=== PATIENT | female | born 1965 | race Caucasian/White ===

== ENCOUNTER 2018-01-21 00:29 | Emergency (ER) | payer OTHER ==
[~2018-01-21] VITALS: Ht 175.3 cm; Wt 115.0 kg
[~2018-01-21 00:29] MED LIST: ALBU8HFA PO; BUDE10.2 INH; CODE118S2 PO; IPRA3AMP IH; MONT10TA21 PO; MULT-1085 PO; SACC250C PO
[2018-01-21] MEDS ORDERED: AMOX500C2 PO (00:49)
[2018-01-21] MEDS ORDERED: amoxicillin 250mg capsule PO ONE (00:50)
[2018-01-21] MEDS ORDERED: ibuprofen tablet 400 MG TABLET PO ONE (00:50)
[2018-01-21 01:00] VITALS: BP 134/79
== END 2018-01-21 01:03 | disposition home or self-care (01) ==
LOC: ER 00:30
DX: J32.1 Chronic frontal sinusitis (principal); J32.0 Chronic maxillary sinusitis; J45.909 Unspecified asthma, uncomplicated; Z88.1 Allergy status to other antibiotic agents; Z79.899 Other long term (current) drug therapy
CPT/HCPCS: 99283

== ENCOUNTER 2018-05-03 00:06 | Emergency (ER) | payer OTHER ==
[~2018-05-03] VITALS: Ht 175.3 cm; Wt 120.0 kg
[2018-05-03 00:10] VITALS: BP 154/84
== END 2018-05-03 00:36 | disposition home or self-care (01) ==
LOC: ER 00:07
DX: S97.112A Crushing injury of left great toe, initial encounter (principal); J45.909 Unspecified asthma, uncomplicated; Z86.711 Personal history of pulmonary embolism; Z90.49 Acquired absence of other specified parts of digestive tract; Z98.51 Tubal ligation status; Z88.1 Allergy status to other antibiotic agents; Z79.899 Other long term (current) drug therapy; W23.0XXA Caught, crushed, jammed, or pinched between moving objects, initial encounter; Y93.89 Activity, other specified; Y92.89 Other specified places as the place of occurrence of the external cause; Y99.9 Unspecified external cause status
CPT/HCPCS: 73630; 99284

== ENCOUNTER 2018-06-09 10:22 | Emergency (ER) | payer OTHER ==
[~2018-06-09] VITALS: Ht 177.8 cm; Wt 120.0 kg
[~2018-06-09 10:22] MED LIST changes: -IPRA3AMP IH; +IPRA3AMP31 IH
[2018-06-09 13:31] VITALS: BP 150/90
== END 2018-06-09 13:32 | disposition home or self-care (01) ==
LOC: EEVIPCON 10:23 → ER 10:23
DX: S20.229A Contusion of unspecified back wall of thorax, initial encounter (principal); M54.2 Cervicalgia; M54.6 Pain in thoracic spine; J45.909 Unspecified asthma, uncomplicated; Z86.711 Personal history of pulmonary embolism; Z90.49 Acquired absence of other specified parts of digestive tract; Z98.51 Tubal ligation status; Z88.1 Allergy status to other antibiotic agents; Z79.899 Other long term (current) drug therapy; W20.8XXA Other cause of strike by thrown, projected or falling object, initial encounter; Y93.89 Activity, other specified; Y92.89 Other specified places as the place of occurrence of the external cause; Y99.9 Unspecified external cause status
CPT/HCPCS: 72040; 72074; 99284

== ENCOUNTER 2018-12-26 09:55 | Outpatient (CLI) | payer OTHER ==
[2018-12-26 11:13] LABS: BASOPHILS % (AUTO) 0.6 % (0-1); EOSINOPHILS # (AUTO) 0.2 X10'3 (0-0.9); EOSINOPHILS % (AUTO) 4.8 % (0-6); HEMATOCRIT 44.3 % (35.0-45.0); HEMOGLOBIN 15.3 g/dl (12.0-16.0); LYMPHOCYTES # (AUTO) 2.6 X10'3 (1.1-4.8); LYMPHOCYTES % (AUTO) 51.8 % (21-51); MEAN CORPUSCULAR HEMOGLOBIN 31.2 PG (27.0-31.0); MEAN CORPUSCULAR HGB CONC 34.6 g/dL (33.0-36.5); MEAN CORPUSCULAR VOLUME 90.3 FL (78-98); MEAN PLATELET VOLUME 7.8 FL (7.4-10.4); MONOCYTES # (AUTO) 0.3 X10'3 (0-0.9); MONOCYTES % (AUTO) 6.5 % (2-12); NEUTROPHILS # (AUTO) 1.8 X10'3 (1.8-7.7); NEUTROPHILS % (AUTO) 36.3 % (42-75); PLATELET COUNT 240 X10'3 (140-440); RED BLOOD COUNT 4.91 X10'6 (4.20-5.60); WHITE BLOOD COUNT 5.1 X10'3 (4.5-11.0)
[2018-12-26 11:15] LABS: ALBUMIN 3.6 G/DL (3.4-5.0); ANION GAP 7 (8-16); BLOOD UREA NITROGEN 10 MG/DL (7-18); BUN/CREATININE RATIO 13.3 (6.6-38.0); CALCIUM 8.8 MG/DL (8.5-10.1); CHLORIDE 105 MMOL/L (99-107); CREATININE 0.75 MG/DL (0.40-0.90); GLUCOSE 111 MG/DL (70-104); POTASSIUM 3.7 MMOL/L (3.5-5.1); SODIUM 141 MMOL/L (135-145); TOTAL CARBON DIOXIDE 28.7 MMOL/L (24-32); eGFR 81 ML/MIN
== END 2018-12-26 23:59 | disposition home or self-care (01) ==
LOC: LAB 09:55
PROVIDERS: ATTEND Orthopaedic Surgery
DX: Z01.818 Encounter for other preprocedural examination (principal); S43.432A Superior glenoid labrum lesion of left shoulder, initial encounter; M75.02 Adhesive capsulitis of left shoulder; M66.822 Spontaneous rupture of other tendons, left upper arm; J45.909 Unspecified asthma, uncomplicated; X58.XXXA Exposure to other specified factors, initial encounter; Y93.89 Activity, other specified; Y92.89 Other specified places as the place of occurrence of the external cause; Y99.8 Other external cause status
CPT/HCPCS: 36415; 80048; 85025

== ENCOUNTER 2019-11-23 10:51 | Outpatient (CLI) | payer OTHER | END 2019-11-23 23:59 | disposition home or self-care (01) | LOC: RAD 10:51 | PROVIDERS: ATTEND Orthopaedic Surgery Orthopaedic Surgery of the Spine | DX: M50.21 Other cervical disc displacement, high cervical region (principal); M48.02 Spinal stenosis, cervical region | CPT/HCPCS: 72141 ==

== ENCOUNTER 2019-12-10 09:23 | Outpatient (CLI) | payer OTHER ==
[2019-12-10 10:42] LABS: BASOPHILS % (AUTO) 0.6 % (0-1); EOSINOPHILS # (AUTO) 0.3 X10'3 (0-0.9); EOSINOPHILS % (AUTO) 4.6 % (0-6); HEMATOCRIT 47.4 % (35.0-45.0); HEMOGLOBIN 16.4 g/dl (12.0-16.0); LYMPHOCYTES # (AUTO) 2.5 X10'3 (1.1-4.8); LYMPHOCYTES % (AUTO) 40.3 % (21-51); MEAN CORPUSCULAR HEMOGLOBIN 30.6 PG (27.0-31.0); MEAN CORPUSCULAR HGB CONC 34.7 g/dL (33.0-36.5); MEAN CORPUSCULAR VOLUME 88.1 FL (78-98); MONOCYTES # (AUTO) 0.3 X10'3 (0-0.9); MONOCYTES % (AUTO) 5.4 % (2-12); NEUTROPHILS % (AUTO) 49.1 % (42-75); PLATELET COUNT 266 X10'3 (140-440); RED BLOOD COUNT 5.38 X10'6 (4.20-5.60); RED CELL DISTRIBUTION WIDTH 13.3 % (11.5-14.5); WHITE BLOOD COUNT 6.2 X10'3 (4.5-11.0)
[2019-12-10 10:48] LABS: CLARITY,URINE CLEAR (Clear); COLOR,URINE YELLOW (Yellow); GLUCOSE, URINE NEGATIVE (Neg); KETONES,URINE NEGATIVE (Neg); LEUKOCYTE ESTERASE ,URINE NEGATIVE (Neg); NITRITES, URINE NEGATIVE (Neg); OCCULT BLOOD,URINE NEGATIVE (Neg); PROTEIN,URINE NEGATIVE (Neg)
[2019-12-10 10:52] LABS: UA COLLECTION TYPE NON-SPECIFIED
[2019-12-10 11:02] LABS: ALANINE AMINOTRANSFERASE 21 U/L (12-78); ALBUMIN/GLOBULIN RATIO 1.1 (1.1-1.5); ALKALINE PHOSPHATASE 113 IU/L (46-116); ANION GAP 9 (8-16); ASPARTATE AMINO TRANSFERASE 11 U/L (10-37); BILIRUBIN,TOTAL 0.4 MG/DL (0.1-1.0); BLOOD UREA NITROGEN 14 MG/DL (7-18); BUN/CREATININE RATIO 16.5 (6.6-38.0); CALCIUM 9.2 MG/DL (8.5-10.1); CHLORIDE 106 MMOL/L (99-107); CHOL/HDL RATIO 4.8 (0.00-4.99); CHOLESTEROL 243 MG/DL (0-200); CREATININE 0.85 MG/DL (0.40-0.90); GLUCOSE 143 MG/DL (70-104); HDL CHOLESTEROL 51 MG/DL (35-60); LDL CHOLESTEROL 154 MG/DL (50-100); SODIUM 145 MMOL/L (135-145); TOTAL CARBON DIOXIDE 30.4 MMOL/L (24-32); TOTAL PROTEIN 7.8 G/DL (6.4-8.2); TRIGLYCERIDES 209 MG/DL (20-135); eGFR 70 ML/MIN
[2019-12-10 11:03] LABS: HEMOGLOBIN A1C 6.8 % (4.5-6.2)
[2019-12-11 09:13] LABS: FTI 2.4 (1.2-4.9); LUTEINIZING HORMONE 31.7 mIU/mL (.); PROLACTIN 10.5 ng/mL (4.8-23.3); THYROXINE (T4) 8.4 ug/dL (4.5-12.0)
[2019-12-11 14:19] LABS: MICROALB/CRT, RATIO 6 mg/g creat (0-29)
== END 2019-12-10 23:59 | disposition home or self-care (01) ==
LOC: LAB 09:23
PROVIDERS: ATTEND Family Medicine
DX: Z00.00 Encounter for general adult medical examination without abnormal findings (principal); E23.6 Other disorders of pituitary gland
CPT/HCPCS: 36415; 80053; 80061; 81003; 82043; 82570; 83001; 83002; 83036; 84146; 84402; 84403; 84436; 84439; 84443; 84479; 85025

== ENCOUNTER 2020-01-17 12:06 | Outpatient (CLI) | payer OTHER | END 2020-01-17 23:59 | disposition home or self-care (01) | LOC: RAD 12:06 | PROVIDERS: ATTEND Family Medicine | DX: M47.815 Spondylosis without myelopathy or radiculopathy, thoracolumbar region (principal); M47.898 Other spondylosis, sacral and sacrococcygeal region; M79.641 Pain in right hand; M25.531 Pain in right wrist; M16.0 Bilateral primary osteoarthritis of hip | CPT/HCPCS: 72074; 72110; 72220; 73110; 73130; 73522 ==

== ENCOUNTER 2020-02-10 06:45 | Outpatient (CLI) | payer OTHER ==
[2020-02-10 07:15] LABS: CLARITY,URINE SLIGHTLY CLOUDY (Clear); COLOR,URINE YELLOW (Yellow); GLUCOSE, URINE NEGATIVE (Neg); KETONES,URINE NEGATIVE (Neg); LEUKOCYTE ESTERASE ,URINE NEGATIVE (Neg); NITRITES, URINE NEGATIVE (Neg); OCCULT BLOOD,URINE NEGATIVE (Neg); PH,URINE 5.5 (4.8-8.0); PROTEIN,URINE NEGATIVE (Neg); UROBILINOGEN,URINE 0.2 E.U/dL (0.2-1.0)
[2020-02-10 07:16] LABS: UA COLLECTION TYPE CLN CATCH MIDSTREAM
[2020-02-10 07:29] LABS: MUCUS STRANDS MODERATE /LPF (Neg); SQUAMOUS EPITHELIAL CELL,UR MANY /LPF (FEW)
[2020-02-10 07:31] LABS: BACTERIA,URINE 1+ /HPF (Neg); RBC,URINE 0-2 /HPF (0-2); WBC,URINE 0-4 /HPF (0-4)
== END 2020-02-10 23:59 | disposition home or self-care (01) ==
LOC: LAB 06:45
PROVIDERS: ATTEND Family Medicine
DX: Z01.84 Encounter for antibody response examination (principal); R10.9 Unspecified abdominal pain
CPT/HCPCS: 36415; 81001; 86704; 86735; 86762; 86765